=== PATIENT | female | born 1985 | race Caucasian/White ===

== ENCOUNTER 2021-01-26 12:17 | Emergency (ER) | payer BC, OTHER ==
[~2021-01-26] VITALS: Ht 167.6 cm; Wt 104.3 kg
[2021-01-26] MEDS ORDERED: FAMOTIDINE 20 M20 MG PO (12:41)
[2021-01-26] MEDS ORDERED: ONDANSETRON HCL4 M2 PO (12:41)
[2021-01-26 12:59] LABS: URINE BILIRUBIN NEGATIVE (Negative); URINE BLOOD NEGATIVE (Negative); URINE CLARITY CLEAR; URINE COLOR YELLOW; URINE GLUCOSE-RANDOM* NEGATIVE (Negative); URINE KETONES NEGATIVE (Negative); URINE LEUKOCYTES-REFLEX NEGATIVE (Negative); URINE NITRITE-REFLEX NEGATIVE (Negative); URINE PROTEIN (DIPSTICK) NEGATIVE (Negative); URINE SPECIFIC GRAVITY 1.025 (1.005-1.035); URINE UROBILINOGEN 0.2 E.U./dl (0.2-1.0)
[2021-01-26 13:00] LABS: ABSOLUTE NEUTROPHILS 2.9 thou/uL (1.4-8.2); BASOPHILS 0.8 % (0.0-2.0); EOSINOPHILS 1.6 % (0.0-3.0); HEMATOCRIT 41.7 % (37.0-47.0); HEMOGLOBIN 13.9 gm/dL (12.0-15.0); LYMPHOCYTES 45.4 % (24.0-44.0); MCHC 33.2 g/dL (28.0-37.0); MCV 90.3 fL (80.0-100.0); MONOCYTES 7.8 % (1.0-8.0); PLATELET COUNT 237 thou/uL (150-400); POLYS 44.4 % (36.0-66.0); RBC 4.62 mil/uL (4.20-5.00); RDW 12.9 % (10.5-14.5); WBC 6.6 thou/uL (4.0-11.0)
[2021-01-26 13:11] LABS: ANION GAP 8 mmol/L (7-16); BUN 10 mg/dL (7-18); CALCIUM 8.7 mg/dL (8.5-10.1); CHLORIDE 102 mmol/L (98-107); CO2 27 mmol/L (21-32); CREATININE 0.9 mg/dL (0.6-1.0); GLUCOSE 108 mg/dL (74-106); SODIUM 137 mmol/L (136-145)
[2021-01-26 13:21] LABS: ALBUMIN 3.7 g/dL (3.4-5.0); LIPASE 165 U/L (73-393); SGOT 21 U/L (15-37); SGPT 39 U/L (14-59); TOTAL BILIRUBIN 0.3 mg/dL (0.2-1.0); TOTAL PROTEIN 7.1 g/dL (6.4-8.2); TROPONIN-I <0.06 ng/mL (<0.06)
[2021-01-26] MEDS ORDERED: ZOFRAN ODT4 MG PO (14:53)
[2021-01-26] MEDS ORDERED: MECLIZINE HCL25 M1 PO (14:53)
[2021-01-26 15:13] VITALS: BP 131/75
--- NOTE | 2021-01-26 17:43 | EKG ---
[address] [address] ELECTROCARDIOGRAM REPORT Name: SHAHID CHENG Room #: DEP Dorie#: [id number] Admission: 01/26/21 Attend Phys: Discharge: 01/26/21 Date of : 83 Report #: [id number] [facility] ED Test Date: 2021-01-26 Test Time: 13:05:47 Pat Name: SHAHID CHENG Department: Room: Gender: F [employer]: cu : 1985 Requested By: Ramy Taylor Order Number: [id number] MD: Chuy Reyes Measurements Intervals [place] Rate: 75 P: 14 [place]: 141 QRS: 40 QRSD: 77 T: 51 QT: 398 QTc: 445 Interpretive Statements Sinus rhythm No previous ECG available for comparison Electronically Signed On 01-26-2021 17:43:23 [employer]PECTING SUPERVISOR by Chuy Reyes [email or web address] <ELECTRONICALLY SIGNED> By: Chuy Reyes MD 01/26/21 1743 1305 1305 Chuy Reyes MD /EPI
== END 2021-01-26 15:18 | disposition home or self-care (01) ==
LOC: ER 12:17
PROVIDERS: Emergency Medicine
DX: R42 Dizziness and giddiness (principal); R11.2 Nausea with vomiting, unspecified; R10.84 Generalized abdominal pain; Z79.899 Other long term (current) drug therapy